=== PATIENT | female | born 1935 | race Hispanic/Latino ===

== ENCOUNTER 2020-04-21 12:55 | Inpatient (IN) | payer MEDICARE ==
[2020-04-21] MEDS ORDERED: ONDANSETRON 4 MG/2 ML INJ IV ONE (14:46)
[2020-04-21] MEDS ORDERED: SODIUM CHLORIDE 0.9% 1000 ML 1,000 ML IV ONE (14:46)
[2020-04-21 15:32] LABS: Basophils # (Auto) 0.1 K/mm3 (0.0-0.1); Basophils % (Auto) 0.6 % (0.0-1.8); Eosinophils % (Auto) 0.1 % (0.0-4.3); Hematocrit 43.7 % (30.3-42.9); Hemoglobin 14.5 gm/dl (10.1-14.3); Lymphocytes # (Auto) 1.8 K/mm3 (1.2-5.4); Lymphocytes % (Auto) 12.2 % (13.4-35.0); Mean Corpuscular HGB Conc 33 % (30-34); Mean Corpuscular Volume 99 fl (79-97); Monocytes % (Auto) 6.9 % (0.0-7.3); Platelet Count 313 K/mm3 (140-440); Red Blood Count 4.42 M/mm3 (3.65-5.03); Red Cell Distribution Width 13.6 % (13.2-15.2)
[2020-04-21 15:45] LABS: Albumin 3.7 g/dL (3.9-5); Calcium 10.7 mg/dL (8.4-10.2)
--- NOTE | 2020-04-21 15:51 | XRay Report ---
XR chest 1V ap INDICATION / CLINICAL INFORMATION: Chest Pain. COMPARISON: None FINDINGS: Heart size and pulmonary vasculature are within normal limits. Increased interstitial markings are mckeon ggestive of chronic interstitial lung disease. There is no focal airspace consolidation. No pleural e ffusion or pneumothorax. Scoliotic curvature. No acute osseous findings. IMPRESSION: Chronic appearing interstitial lung disease. No acute process identified. Signer Name: Deven Desai MD Signed: 04/21/2020 3:47 PM Workstation Name: [id number]
[2020-04-21] MEDS ORDERED: PIPERACILLIN/TAZOBACTAM 3.375 3.375 GM/50 ML BAG IV ONE (16:36)
--- NOTE | 2020-04-21 16:37 | Emergency Department Report ---
ED General Adult HPI - General Chief complaint: Weakness Stated complaint: NAUSEA/VOMITING Time Seen by Provider: 04/21/20 14:40 Source: patient, EMS Mode of arrival: Stretcher Limitations: Other - History of Present Illness Initial comments: Patient is 85 years old female with history of hypertension and dementia. Patient brought to the emergency room via EMS from her primary care office for evaluation of generalized weakness and hypotension. EMS stated that patient blood pressure was 80/40. Patient received a liter of normal saline. Patient also reported nausea vomiting for the last 2 to 3 days. Patient denied any fever or chills. -: This morning Severity scale (0 -10): 5 - Related Data Home Medications Medication Instructions Recorded Confirmed Last Taken ALPRAZolam [Xanax TAB] 1 mg PO TID 04/10/13 04/21/20 04/10/13 09:00 Atorvastatin Calcium [Lipitor] 20 mg PO QDAY 04/10/13 04/21/20 04/10/13 09:00 Citalopram [Celexa] 40 mg PO QDAY 03/21/15 04/21/20 Unknown donepeziL [Aricept] 10 mg PO QDAY 03/21/15 04/21/20 Unknown Budesonide/Formoterol Fumarate 2 puff IH BID 04/21/20 04/21/20 Unknown [Budesonide-Formoterol 160-4.5] HYDROcodone/APAP 5-325 [[place] 1 each PO BID 04/21/20 04/21/20 Unknown 5/325] Previous Rx's Medication Instructions Recorded Last Taken Type Albuterol Mdi (or & Nicu Only) 2 puff IH QID PRN #1 inhalation 03/25/15 Unknown Rx [ProAir HFA Inhaler] Allergies Allergy/AdvReac Type Severity Reaction Status Date / Time No Known Allergies Allergy Unverified 04/10/13 16:09 ED Review of Systems ROS: Stated complaint: NAUSEA/VOMITING Other details as noted in HPI Comment: All other systems reviewed and negative Constitutional: denies: chills, fever Respiratory: denies: cough, shortness of breath, SOB with exertion, SOB at rest, wheezing Cardiovascular: chest pain, palpitations Gastrointestinal: abdominal pain, nausea, vomiting. denies: diarrhea, constipation, hematemesis, melena, hematochezia Genitourinary: frequency Musculoskeletal: denies: back pain Neurological: weakness. denies: headache, numbness, paresthesias, confusion ED Past Medical Hx - Past Medical History Previous Medical History?: Yes Hx Hypertension: Yes Hx Heart Attack/AMI: No Hx Diabetes: No Hx Liver Disease: No Hx Sickle Cell Disease: No Hx Arthritis: Yes Hx Seizures: No Hx Asthma: No Hx Dementia: Yes (mild) Hx HIV: No Additional medical history: cholesterol,RECTAL PROLAPSED - Surgical History Past Surgical History?: Yes Additional Surgical History: right knee replacement 03-19-13. bladder tack - Social History Smoking Status: Current Every Day Smoker Substance Use Type: None - Medications Home Medications: Home Medications Medication Instructions Recorded Confirmed Last Taken Type ALPRAZolam [Xanax TAB] 1 mg PO TID 04/10/13 04/21/20 04/10/13 09:00 History Atorvastatin Calcium [Lipitor] 20 mg PO QDAY 04/10/13 04/21/20 04/10/13 09:00 History Citalopram [Celexa] 40 mg PO QDAY 03/21/15 04/21/20 Unknown History donepeziL [Aricept] 10 mg PO QDAY 03/21/15 04/21/20 Unknown History Albuterol Mdi (or & Nicu Only) 2 puff IH QID PRN #1 inhalation 03/25/15 04/21/20 Unknown Rx [ProAir HFA Inhaler] Budesonide/Formoterol Fumarate 2 puff IH BID 04/21/20 04/21/20 Unknown History [Budesonide-Formoterol 160-4.5] HYDROcodone/APAP 5-325 [[place] 1 each PO BID 04/21/20 04/21/20 Unknown History 5/325] ED Physical Exam - General Limitations: Other General appearance: alert, in no apparent distress - Head Head exam: Present: atraumatic, normocephalic, normal inspection - Eye Eye exam: Present: normal appearance, PERRL - ENT ENT exam: Present: mucous membranes dry - Neck Neck exam: Present: normal inspection, full ROM. Absent: tenderness, meningismus, lymphadenopathy, thyromegaly - Respiratory Respiratory exam: Present: normal lung sounds bilaterally - Cardiovascular Cardiovascular Exam: Present: regular rate, normal rhythm, normal heart sounds - GI/Abdominal GI/Abdominal exam: Present: soft, normal bowel sounds. Absent: distended, tenderness, guarding, rebound, rigid, organomegaly, mass, bruit, pulsatile mass, hernia - Extremities Exam Extremities exam: Present: normal inspection, full ROM, normal capillary refill. Absent: pedal edema, calf tenderness - Back Exam Back exam: Present: normal inspection, full ROM. Absent: CVA tenderness (R), CVA tenderness (L) - Neurological Exam Neurological exam: Present: alert, oriented X3, CN II-XII intact. Absent: motor sensory deficit - Psychiatric Psychiatric exam: Present: normal mood - Skin Skin exam: Present: warm, intact, normal color ED Course Vital Signs 04/21/20 04/21/20 04/21/20 14:08 14:09 14:12 Temperature 97.5 F L Pulse Rate 95 H 102 H Respiratory 18 19 16 Rate Blood Pressure Blood Pressure 164/93 [Right] O2 Sat by Pulse 96 94 96 Oximetry 04/21/20 04/21/20 04/21/20 14:15 14:30 14:45 Temperature Pulse Rate 100 H 105 H 104 H Respiratory 17 19 23 Rate Blood Pressure 164/93 154/88 154/88 Blood Pressure [Right] O2 Sat by Pulse 96 95 95 Oximetry 04/21/20 04/21/20 04/21/20 15:00 15:15 15:30 Temperature Pulse Rate 101 H 107 H 98 H Respiratory 22 27 H 21 Rate Blood Pressure 141/79 141/79 152/125 Blood Pressure [Right] O2 Sat by Pulse 94 97 95 Oximetry 04/21/20 04/21/20 04/21/20 15:45 16:00 16:15 Temperature Pulse Rate 91 H 89 92 H Respiratory 23 18 19 Rate Blood Pressure 152/125 151/51 151/51 Blood Pressure [Right] O2 Sat by Pulse 97 97 97 Oximetry 04/21/20 04/21/20 04/21/20 16:31 16:45 17:01 Temperature Pulse Rate 93 H 98 H 95 H Respiratory 22 21 23 Rate Blood Pressure 166/61 166/61 152/74 Blood Pressure [Right] O2 Sat by Pulse 97 95 96 Oximetry 04/21/20 04/21/20 04/21/20 17:15 17:30 17:45 Temperature Pulse Rate 102 H 101 H 95 H Respiratory 20 22 19 Rate Blood Pressure 152/74 155/65 155/65 Blood Pressure [Right] O2 Sat by Pulse 96 96 96 Oximetry 04/21/20 04/21/20 04/21/20 18:01 18:15 18:30 Temperature Pulse Rate 101 H 98 H 92 H Respiratory 19 19 18 Rate Blood Pressure 152/72 152/72 148/75 Blood Pressure [Right] O2 Sat by Pulse 97 96 96 Oximetry 04/21/20 04/21/20 04/21/20 18:56 19:00 19:15 Temperature Pulse Rate 98 H 93 H 96 H Respiratory 20 20 Rate Blood Pressure 152/72 138/88 138/88 Blood Pressure [Right] O2 Sat by Pulse 90 98 97 Oximetry 04/21/20 04/21/20 04/21/20 19:31 19:45 20:00 Temperature Pulse Rate 93 H 93 H 97 H Respiratory 17 22 19 Rate Blood Pressure 169/81 148/75 155/75 Blood Pressure [Right] O2 Sat by Pulse 97 98 95 Oximetry 04/21/20 04/21/20 04/21/20 20:15 20:30 20:45 Temperature Pulse Rate 91 H 94 H 92 H Respiratory 17 22 19 Rate Blood Pressure 155/75 127/66 127/66 Blood Pressure [Right] O2 Sat by Pulse 96 98 95 Oximetry 04/21/20 20:51 Temperature Pulse Rate Respiratory 19 Rate Blood Pressure Blood Pressure [Right] O2 Sat by Pulse 95 Oximetry ED Medical Decision Making - Lab Data Result diagrams: 04/21/20 15:09 04/21/20 15:09 - EKG Data -: EKG Interpreted by Nd EKG shows normal: sinus rhythm Rate: normal - EKG Data Interpretation: no acute changes - Radiology Data Radiology results: report reviewed - Medical Decision Making Patient is 85 years old female with history of hypertension and dementia. Patient brought to the emergency room via EMS from her primary care office for evaluation of generalized weakness and hypotension. EMS stated that patient blood pressure was 80/40. Patient received a liter of normal saline. Patient also reported nausea vomiting for the last 2 to 3 days. Patient denied any fever or chills. Patient started on normal saline. White blood cells came back at 14.7 patient received Zosyn. Chest x-ray is unremarkable. CT abdomen pelvis is negative for acute finding. Urine is positive for UTI with positive nitrite. I discussed the patient with Dr. Qiu, he agreed to admit the patient to medical service for further management. Critical Care Time: Yes Critical care time in (mins) excluding proc time.: 30 Critical care attestation.: If time is entered above; I have spent that time in minutes in the direct care of this critically ill patient, excluding procedure time. ED Disposition Clinical Impression: Hypotension, UTI (urinary tract infection) Disposition: OP ADMIT IP TO THIS HOSP Is pt being admited?: Yes Condition: Stable Referrals: PRIMARY CARE,MD [Primary Care Provider] - 3-5 Days
--- NOTE | 2020-04-21 19:11 | Cat Scan Report ---
CT abdomen pelvis wo con INDICATION: ABDOMINAL PAIN. COMPARISON: None TECHNIQUE: Abdominal and pelvic CT exam performed. All CT scans at this location are performed using CT dose reduction for ALARA by means of automated exposure control. FINDINGS: CT ABDOMEN and PELVIS: Lung Bases: No significant abnormality. Liver: No significant abnormality. Biliary: No significant abnormality. Spleen: No significant abnormality. Pancreas: No significant abnormality. Adrenals: No significant abnormality. Kidneys: No significant abnormality. Lymphatics: No lymphadenopathy. Vasculature: No significant abnormality. Bowel: Moderate size hiatal hernia. No significant abnormality. Normal appendix. Pelvis: No significant abnormality. Osseous Structures: No aggressive osseous lesion. S-shaped scoliotic curvature. Additional Findings: None IMPRESSION: 1. No significant abnormality of the abdomen or pelvis. Signer Name: David Almanzar MD Signed: 04/21/2020 7:06 PM Workstation Name: [id number]
[2020-04-21 20:33] LABS: Bacteria,Urine 3+ /HPF (Negative); Bilirubin,Urine NEG (Negative); Blood,Urine NEG (Negative); Color,Urine Yellow (Yellow); Mucus,Urine FEW /HPF; Protein,Urine <15 mg/dL mg/dL (Negative); Urobilinogen,Urine < 2.0 mg/dL (<2.0)
[2020-04-21] MEDS ORDERED: ACETAMINOPHEN 325 MG TAB PO PRN (21:43)
[2020-04-21] MEDS ORDERED: MAGNESIUM HYDROXIDE (MOM) ORAL LIQD UDC PO PRN (21:43)
[2020-04-21] MEDS ORDERED: ONDANSETRON 4 MG/2 ML INJ IV PRN (21:43)
--- NOTE | 2020-04-21 21:50 | History and Physical Report ---
History of Present Illness Date of examination: 04/21/20 Date of admission: 04/21/2020 Chief complaint: Nausea and Vomiting Hypotension History of present illness: 85-year-old white female with known history of hypertension and dementia brought into the emergency room via EMS today for for complaints of generalized weakness and hypotension. Patient had visited primary care physician today after having a complaint of nausea and vomiting, weakness which has been ongoing for about 2 to 3 days.. Blood pressure was found to be low with systolic at 80 and diastolic of 40. She received a liter of normal saline prior to reporting to the emergency room. Patient denies any fever or chills, no chest pain or shortness of breath. No headache or dizziness no hematuria or dysuria, no abdominal pain. Work-up in the emergency room today reveals a leukocytosis of about 15, urinalysis reveals a UTI. Patient has been started on empiric IV antibiotics and also IV fluid for hypotension. Past History Past Medical History: arthritis, hypertension, hyperlipidemia, other (Dementia,Rectal prolapse) Past Surgical History: Other (Bladder tack, right knee replacement,) Social history: smoking (Current daily smoker) Family history: no significant family history Medications and Allergies Allergies Allergy/AdvReac Type Severity Reaction Status Date / Time No Known Allergies Allergy Unverified 04/10/13 16:09 Home Medications Medication Instructions Recorded Confirmed Last Taken Type ALPRAZolam [Xanax TAB] 1 mg PO TID 04/10/13 04/21/20 04/10/13 09:00 History Atorvastatin Calcium [Lipitor] 20 mg PO QDAY 04/10/13 04/21/20 04/10/13 09:00 History Citalopram [Celexa] 40 mg PO QDAY 03/21/15 04/21/20 Unknown History donepeziL [Aricept] 10 mg PO QDAY 03/21/15 04/21/20 Unknown History Albuterol Mdi (or & Nicu Only) 2 puff IH QID PRN #1 inhalation 03/25/15 04/21/20 Unknown Rx [ProAir HFA Inhaler] Budesonide/Formoterol Fumarate 2 puff IH BID 04/21/20 04/21/20 Unknown History [Budesonide-Formoterol 160-4.5] HYDROcodone/APAP 5-325 [[place] 1 each PO BID 04/21/20 04/21/20 Unknown History 5/325] Active Meds: Active Medications Acetaminophen (Tylenol) 650 mg PO Q4H PRN PRN Reason: Pain MILD(1-3)/Fever >100.5/CH Sodium Chloride (Nacl 0.9% 1000 Ml) 1,000 mls @ 125 mls/hr IV DIRECT DASHA Magnesium Hydroxide (Milk Of Magnesia) 30 ml PO Q4H PRN PRN Reason: Constipation Ondansetron HCl (Zofran) 4 mg IV Q8H PRN PRN Reason: Nausea And Vomiting Sodium Chloride (Sodium Chloride Flush Syringe 10 Ml) 10 ml IV BID DASHA Sodium Chloride (Sodium Chloride Flush Syringe 10 Ml) 10 ml IV PRN PRN PRN Reason: LINE FLUSH Review of Systems Constitutional: no fever, no chills Ears, nose, mouth and throat: no nasal congestion, no sore throat Cardiovascular: no chest pain, no palpitations Respiratory: no cough, no shortness of breath Gastrointestinal: nausea, vomiting, no abdominal pain, no diarrhea Genitourinary Female: no pelvic pain, no dysuria, no hematuria Musculoskeletal: no neck pain, no low back pain Integumentary: no rash, no pruritis Neurological: no headaches, no confusion Psychiatric: no anxiety, no depression Exam - Constitutional Vitals: Temp Pulse Resp BP Pulse Ox 97.5 F L 92 H 19 127/66 95 04/21/20 14:08 04/21/20 20:45 04/21/20 20:51 04/21/20 20:45 04/21/20 20:51 General appearance: Present: no acute distress, well-nourished - EENT Eyes: Present: PERRL, EOM intact. Absent: scleral icterus ENT: hearing intact, clear oral mucosa, dentition normal - Neck Neck: Present: supple, normal ROM - Respiratory Respiratory effort: normal Respiratory: bilateral: CTA - Cardiovascular Rhythm: regular Heart Sounds: Present: S1 & S2. Absent: gallop, systolic murmur, diastolic murmur, rub - Extremities Extremities: no ischemia, pulses intact, pulses symmetrical, No edema, Full ROM Peripheral Pulses: within normal limits - Abdominal General gastrointestinal: Present: soft, non-tender, non-distended, normal bowel sounds. Absent: mass - Integumentary Integumentary: Present: clear, warm, dry. Absent: rash - Musculoskeletal Musculoskeletal: strength equal bilaterally - Psychiatric Psychiatric: appropriate mood/affect, intact judgment & insight, memory intact, cooperative - Neurologic Neurologic: CNII-XII intact, no focal deficits, moves all extremities HEART Score - HEART Score Troponin: Troponin T < 0.010 ng/mL (0.00-0.029) 04/21/20 20:08 Results - Labs CBC & Chem 7: 04/21/20 15:09 04/21/20 15:09 Labs: Abnormal lab results 04/21/20 04/21/20 Range/Units 15:09 15:09 WBC 14.7 H (4.5-11.0) K/mm3 Hgb 14.5 H (10.1-14.3) gm/dl Hct 43.7 H (30.3-42.9) % MCV 99 H (79-97) fl MCH 33 H (28-32) pg Lymph % (Auto) 12.2 L (13.4-35.0) % [place] # (Auto) 1.0 H (0.0-0.8) K/mm3 Seg Neutrophils % 80.2 H (40.0-70.0) % Seg Neutrophils # 11.8 H (1.8-7.7) K/mm3 BUN 61 H (7-17) mg/dL Creatinine 1.6 H (0.6-1.2) mg/dL Glucose 116 H (65-100) mg/dL Calcium 10.7 H (8.4-10.2) mg/dL Albumin 3.7 L (3.9-5) g/dL Assessment and Plan - Patient Problems (1) UTI (urinary tract infection) Current Visit: Yes Status: Acute Plan to address problem: Patient placed on empiric IV antibiotics. We await urine culture results. (2) Hypotension Current Visit: Yes Status: Acute Plan to address problem: Patient placed on IV fluid. Will monitor vital signs closely. (3) Dementia Current Visit: Yes Status: Acute Plan to address problem: We will continue patient on her routine home medication. (4) DVT prophylaxis Current Visit: Yes Status: Acute Plan to address problem: Patient placed on subcutaneous Lovenox. (5) Full code status Current Visit: Yes Status: Acute
[2020-04-22 04:53] LABS: Basophils # (Auto) 0.1 K/mm3 (0.0-0.1); Basophils % (Auto) 0.8 % (0.0-1.8); Eosinophils # (Auto) 0.1 K/mm3 (0.0-0.4); Eosinophils % (Auto) 0.6 % (0.0-4.3); Hematocrit 40.6 % (30.3-42.9); Hemoglobin 14.1 gm/dl (10.1-14.3); Lymphocytes # (Auto) 2.8 K/mm3 (1.2-5.4); Lymphocytes % (Auto) 18.2 % (13.4-35.0); Mean Corpuscular HGB Conc 35 % (30-34); Mean Corpuscular Volume 97 fl (79-97); Monocytes # (Auto) 1.4 K/mm3 (0.0-0.8); Monocytes % (Auto) 9.2 % (0.0-7.3); Platelet Count 299 K/mm3 (140-440); Red Blood Count 4.17 M/mm3 (3.65-5.03); Red Cell Distribution Width 13.6 % (13.2-15.2)
[2020-04-22 05:02] LABS: INR 0.94 (0.87-1.13)
[2020-04-22] MEDS ORDERED: cefTRIAXone/NS 1 GM/50 ML 1 GM/50 ML BAG IV ONE (11:38)
[2020-04-22] MEDS: cefTRIAXone/NS 1 GM/50 ML 1 GM/50 ML BAG IV SCH (11:45)
[2020-04-22] MEDS: SODIUM CHLORIDE 0.9% 1000 ML 1,000 ML IV SCH ×2 (15:55→23:13)
--- NOTE | 2020-04-22 17:19 | Progress Note ---
Assessment and Plan Acute metabolic encephalopathy -Likely due to ANGELICA dehydration and hypotension along with UTI -Continue to treat underlying cause -Patient also has history of dementia, will continue supportive care UTI, continue IV antibiotic, follow culture Hypotension, resolved with IV fluid monitor BP closely Chest pain, likely atypical - will get EKG, start on aspirin and statin -Initial troponin in the ER was normal -We will get 2D echocardiogram, start on PPI HTN, start on norvasc and coreg, monitor BP closely Hyperlipidemia, continue statin Dementia, continue supportive care --DVT prophylaxis, SCD --Full CODE STATUS Brief History: 85-year-old white female with known history of hypertension and dementia brought into the emergency room via EMS today for for complaints of generalized weakness and hypotension. Work-up in the emergency room reveals a leukocytosis of about 15, Cr 1.6, urinalysis reveals a UTI. Patient has been started on empiric IV antibiotics and also IV fluid for hypotension and ANGELICA. 04/22: cr 1.3 today, cont iv abx and Iv fluid. Complaints of chest pain this afternoon, blood pressure also noted elevated. We will monitor serial troponin EKG get 2D echocardiogram. Continue aspirin and statin Subjective Date of service: 04/22/20 Interval history: Patient seen and examined. Medical records and medication list reviewed. No acute event overnight noted by the RN. Patient complains of chest pain but unable to provide any details. Patient is tolerating diet. Discussed plan of care at bedside with patient and RN. Objective - Exam Narrative Exam: GENERAL: well-developed white elderly female lying on bed appeared to be in no discomfort. HEENT: Normocephalic. Atraumatic. No conjunctival congestion or icterus. Patient has moist mucous membranes. NECK: Supple. Trachea midline. CHEST/LUNGS: Clear to auscultated bilaterally, breathing nonlabored. No wheezes crackles or rhonchi. HEART/CARDIOVASCULAR: Regular in rate and rhythm. S1 and S2 positive. ABDOMEN: Abdomen is soft, nontender. Patient has normal bowel sounds. SKIN: There is no rash. Warm and dry. NEURO: No focal motor deficit. Follows command. Oriented to person only MUSCULOSKELETAL: No joint effusion or tenderness. EXTRIMITY: No edema, no cyanosis or clubbing. PSYCH: Cooperative. - Constitutional Vitals: Vital Signs - 12hr 04/22/20 04/22/20 04/22/20 05:30 05:45 06:01 Pulse Rate 92 H 92 H 96 H Respiratory 22 22 22 Rate Blood Pressure 150/98 150/98 132/81 O2 Sat by Pulse 99 95 92 Oximetry 04/22/20 04/22/20 04/22/20 06:15 06:32 06:45 Pulse Rate 95 H 94 H 98 H Respiratory 21 23 19 Rate Blood Pressure 132/81 132/81 O2 Sat by Pulse 95 96 96 Oximetry 04/22/20 04/22/20 04/22/20 07:01 07:15 07:31 Pulse Rate 88 89 91 H Respiratory 16 21 21 Rate Blood Pressure 142/62 142/62 142/62 O2 Sat by Pulse 98 98 98 Oximetry 04/22/20 04/22/20 04/22/20 07:45 08:15 09:31 Pulse Rate 88 87 91 H Respiratory 21 21 21 Rate Blood Pressure 142/62 114/70 135/66 O2 Sat by Pulse 99 99 98 Oximetry 04/22/20 04/22/20 04/22/20 10:00 11:00 12:00 Pulse Rate 94 H 91 H 94 H Respiratory 21 22 21 Rate Blood Pressure 135/66 146/65 130/67 O2 Sat by Pulse 97 97 98 Oximetry 04/22/20 04/22/20 13:31 14:00 Pulse Rate 92 H 99 H Respiratory 19 22 Rate Blood Pressure 107/48 128/61 O2 Sat by Pulse 93 92 Oximetry - Labs CBC & Chem 7: 04/23/20 04:29 04/23/20 04:29 Labs: Abnormal lab results 04/22/20 04/22/20 Range/Units 04:26 04:26 WBC 15.4 H (4.5-11.0) K/mm3 MCH 34 H (28-32) pg MCHC 35 H (30-34) % [place] % (Auto) 9.2 H (0.0-7.3) % [place] # (Auto) 1.4 H (0.0-0.8) K/mm3 Seg Neutrophils % 71.2 H (40.0-70.0) % Seg Neutrophils # 10.9 H (1.8-7.7) K/mm3 BUN 53 H (7-17) mg/dL Creatinine 1.3 H (0.6-1.2) mg/dL Glucose 102 H (65-100) mg/dL HEART Score - HEART Score Troponin: Troponin T < 0.010 ng/mL (0.00-0.029) 04/21/20 20:08
[2020-04-22] MEDS ORDERED: ALBUTEROL 8.5 GM MDI INHALATION IH PRN (19:00)
[2020-04-22] MEDS ORDERED: ALBUTEROL 2.5 MG/3 ML NEBU IH PRN (19:19)
[2020-04-22] MEDS ORDERED: FORMOTEROL FUMARATE IH SCH (22:00)
[2020-04-22] MEDS ORDERED: BUDESONIDE IH SCH (22:00)
[2020-04-22] MEDS ORDERED: ENOXAPARIN 40 MG/0.4 ML INJ SUB-Q SCH (22:00)
[2020-04-22] MEDS ORDERED: [UNRECOGNIZED DRUG - OTHER] IH SCH (22:00)
[2020-04-22] MEDS: carvediloL 3.125 MG TAB PO SCH (23:02)
[2020-04-22] MEDS: ENOXAPARIN 30 MG/0.3 ML INJ SUB-Q SCH (23:02)
[2020-04-22] MEDS: ASPIRIN EC 81 MG TAB PO SCH (23:02)
[2020-04-22] MEDS: ALPRAZolam 1 MG TAB PO PRN (23:28)
[2020-04-23] MEDS: ARFORMOTEROL 15 MCG/2 ML NEBU IH SCH ×3 (00:24→20:29)
[2020-04-23] MEDS: BUDESONIDE 0.5 MG/2 ML NEBU IH SCH ×3 (00:24→20:29)
[2020-04-23 04:49] LABS: Hematocrit 37.3 % (30.3-42.9); Hemoglobin 12.3 gm/dl (10.1-14.3); Mean Corpuscular HGB Conc 33 % (30-34); Mean Corpuscular Volume 100 fl (79-97); Platelet Count 224 K/mm3 (140-440); Red Blood Count 3.73 M/mm3 (3.65-5.03); Red Cell Distribution Width 13.3 % (13.2-15.2)
[2020-04-23 05:06] LABS: BUN/Creatinine Ratio 43; Blood Urea Nitrogen 34 mg/dL (7-17); Calcium 8.6 mg/dL (8.4-10.2); Hemolysis Index 11
[2020-04-23 06:23] LABS: Basophils % (Manual) 0 % (0.0-1.8); Eosinophils % (Manual) 0 % (0.0-4.3); Platelet Estimate Consistent w Auto; Total Cells Counted 100
[2020-04-23] MEDS: SODIUM CHLORIDE 0.9% 1000 ML 1,000 ML IV SCH ×2 (06:27→19:23)
[2020-04-23] MEDS ORDERED: POTASSIUM CHLORIDE ER 20 MEQ TAB PO SCH (10:00)
[2020-04-23] MEDS: cefTRIAXone/NS 1 GM/50 ML 1 GM/50 ML BAG IV SCH (10:43)
[2020-04-23] MEDS: CITALOPRAM 20 MG TAB PO SCH (10:44)
[2020-04-23] MEDS: ASPIRIN EC 81 MG TAB PO SCH (10:44)
[2020-04-23] MEDS: DONEPEZIL 10 MG TAB PO SCH (10:45)
[2020-04-23] MEDS: carvediloL 3.125 MG TAB PO SCH (10:45)
--- NOTE | 2020-04-23 14:06 | Discharge Summary ---
Providers - Providers Date of Admission: 04/22/20 15:09 Date of discharge: 04/24/20 Attending physician: HYUN SANZ 04/21/20 21:45 Consult to Dietitian/Nutrition [CONS] Routine Physician Instructions: Reason For Exam: Reason for Consult: Diet education 04/23/20 12:08 Consult to Physician [CONS] Routine Comment: Consulting Provider: YOKO GARAY Physician Instructions: Reason For Exam: chest pain Primary care physician: [employer]GER Hospitalization Condition: Stable Hospital course: 85-year-old white female with known history of hypertension and dementia brought into the emergency room via EMS today for for complaints of generalized weakness and hypotension. Work-up in the emergency room reveals a leukocytosis of about 15, Cr 1.6, urinalysis reveals a UTI. Patient has been started on empiric IV antibiotics and also IV fluid for hypotension and ANGELICA. 04/22: cr 1.3 today, cont iv abx and Iv fluid. Complaints of chest pain this afternoon, blood pressure also noted elevated. We will monitor serial troponin EKG get 2D echocardiogram. Continue aspirin and statin 04/23: still c/o intermittent chest pain - will follow 2d echo result, consulted cardiology 04/24: Clinically stable, Renal function improved. 2d echo showed Ef 60%, Cardiology recommended stress test. But patient's daughter requested hospice, patient will be discharge with home hospice. 04/25; d/c patient with inpatient hospice in stable condition Discharge diagnosis: Acute metabolic encephalopathy -Likely due to ANGELICA dehydration and hypotension along with UTI -Continue to treat underlying cause -Patient also has history of dementia, will continue supportive care UTI, suspected. treated with IV antibiotic, blood culture negative Leukocytosis, reactive to dehydration, no SIRS or SEPSIS Hypotension, resolved with IV fluid monitor BP closely ANGELICA, likely vasolotor nephropathy from hypotension - POA, improved with IV fluid hypokalemia, repleted Chest pain, likely atypical from GERD - no St changes on EKG, conton aspirin and statin -serial troponin was normal -2D echocardiogram w/o any wall motion abnormality, - cont on PPI, outpt f/u with cardiology COPD, w/o exacerbation - has Remote history of tobacco smoking - cont home inhalers, HTN, cont on norvasc and coreg, monitor BP closely Hyperlipidemia, continue statin Dementia, continue supportive care --DVT prophylaxis, SCD --Full CODE STATUS Disposition: [id number] ([facility]) Time spent for discharge: 34 minutes Core Measure Documentation - Palliative Care Palliative Care/ Comfort Measures: Not Applicable - Core Measures Any of the following diagnoses?: none Exam - Physical Exam Narrative exam: GENERAL: well-developed white elderly female lying on bed appeared to be in no discomfort. HEENT: Normocephalic. Atraumatic. No conjunctival congestion or icterus. Patient has moist mucous membranes. NECK: Supple. Trachea midline. CHEST/LUNGS: Clear to auscultated bilaterally, breathing nonlabored. No wheezes crackles or rhonchi. HEART/CARDIOVASCULAR: Regular in rate and rhythm. S1 and S2 positive. ABDOMEN: Abdomen is soft, nontender. Patient has normal bowel sounds. SKIN: There is no rash. Warm and dry. NEURO: No focal motor deficit. Follows command. Oriented to person only MUSCULOSKELETAL: No joint effusion or tenderness. EXTRIMITY: No edema, no cyanosis or clubbing. PSYCH: Cooperative. - Constitutional Vitals: Temp Pulse Resp BP Pulse Ox 98.6 F 85 16 157/67 99 04/23/20 05:20 04/23/20 10:45 04/23/20 07:27 04/23/20 10:45 04/23/20 05:20 Plan Activity: advance as tolerated Weight Bearing Status: Weight Bear as Tolerated Diet: low fat, low salt Special Instructions: record daily BP diary Follow up with: PRIMARY CAREMD [Primary Care Provider] - 3-5 Days JOVAN TAVAREZ MD [Staff Physician] - 7 Days Prescriptions: amLODIPine 10 mg PO QDAY #30 tablet carvediloL [Coreg] 3.125 mg PO BID #60 tablet Aspirin EC [Halfprin EC] 81 mg PO QDAY #30 tablet
[2020-04-23] MEDS: amLODIPine 10 MG TAB PO SCH (19:27)
[2020-04-23] MEDS: ENOXAPARIN 30 MG/0.3 ML INJ SUB-Q SCH (22:45)
[2020-04-24] MEDS: ALPRAZolam 1 MG TAB PO PRN (00:44)
[2020-04-24] MEDS: carvediloL 3.125 MG TAB PO SCH ×3 (00:45→23:02)
[2020-04-24] MEDS: SODIUM CHLORIDE 0.9% 1000 ML 1,000 ML IV SCH (07:04)
[2020-04-24] MEDS: ARFORMOTEROL 15 MCG/2 ML NEBU IH SCH ×2 (08:51→20:39)
[2020-04-24] MEDS: BUDESONIDE 0.5 MG/2 ML NEBU IH SCH ×2 (08:51→20:39)
--- NOTE | 2020-04-24 10:35 | Progress Note ---
Assessment and Plan Acute metabolic encephalopathy -Likely due to ANGELICA dehydration and hypotension along with UTI -Continue to treat underlying cause -Patient also has history of dementia, will continue supportive care UTI, continue IV antibiotic, follow culture Hypotension, resolved with IV fluid monitor BP closely Chest pain, likely atypical - will get EKG, start on aspirin and statin -Initial troponin in the ER was normal -We will get 2D echocardiogram, start on PPI HTN, start on norvasc and coreg, monitor BP closely Hyperlipidemia, continue statin Dementia, continue supportive care --DVT prophylaxis, SCD --Full CODE STATUS Brief History: 85-year-old white female with known history of hypertension and dementia brought into the emergency room via EMS today for for complaints of generalized weakness and hypotension. Work-up in the emergency room reveals a leukocytosis of about 15, Cr 1.6, urinalysis reveals a UTI. Patient has been started on empiric IV antibiotics and also IV fluid for hypotension and ANGELICA. 04/22: cr 1.3 today, cont iv abx and Iv fluid. Complaints of chest pain this afternoon, blood pressure also noted elevated. We will monitor serial troponin EKG get 2D echocardiogram. Continue aspirin and statin 04/23: still c/o intermittent chest pain - will follow 2d echo result, consulted cardiology Subjective Date of service: 04/23/20 Interval history: Patient seen and examined. Medical records and medication list reviewed. No acute event overnight noted by the RN. Patient complains of chest pain mainly with food but otherwise tolerating diet. Discussed plan of care at bedside with patient and RN. Family was at bedside Objective - Constitutional Vitals: Vital Signs - 12hr 04/24/20 04/24/20 04/24/20 00:45 04:34 08:54 Temperature 97.7 F Pulse Rate 82 83 Pulse Rate [ 86 Anterior Throughout] Respiratory 18 Rate Respiratory 18 Rate [Anterior Throughout] Blood Pressure 156/70 137/70 O2 Sat by Pulse 89 Oximetry - Labs CBC & Chem 7: 04/23/20 04:29 04/23/20 04:29 HEART Score - HEART Score Troponin: Troponin T 0.010 ng/mL (0.00-0.029) 04/24/20 07:07
--- NOTE | 2020-04-24 11:12 | Consultation ---
History of Present Illness Consult date: 04/24/20 Consult reason: chest pain History of present illness: This is a frail, 85-year old woman who was sent from her PCP office 3 days go, with hypotension, nausea vomiting and generalized weakness. Workup in the emergency department revealed dehydration and UTI. Over her hospital course, patient complained of chest pain, thus this cardiac consultation. Patient describes chest pain following ingestion of food or cold drinks. She denies shortness of breath, and denies palpitations. There is no lower extremity edema. Denies a prior cardiac history. Cycled troponin measurements are normal. An ECG done is sinus tachycardia with PACs. Further evaluation with an echocardiogram shows a normal left ventricular systolic function, ejection fraction 60-65%. Past History Past Medical History: arthritis, hypertension, hyperlipidemia, other (Dementia,Rectal prolapse) Past Surgical History: Other (Bladder tack, right knee replacement,) Social history: smoking (Current daily smoker) Family history: no significant family history Medications and Allergies Allergies Allergy/AdvReac Type Severity Reaction Status Date / Time No Known Allergies Allergy Unverified 04/10/13 16:09 Home Medications Medication Instructions Recorded Confirmed Last Taken Type Atorvastatin Calcium [Lipitor] 20 mg PO QDAY 04/10/13 04/21/20 04/10/13 09:00 History Citalopram [Celexa] 40 mg PO QDAY 03/21/15 04/21/20 Unknown History donepeziL [Aricept] 10 mg PO QDAY 03/21/15 04/21/20 Unknown History Albuterol Mdi (or & Nicu Only) 2 puff IH QID PRN #1 inhalation 03/25/15 04/21/20 Unknown Rx [ProAir HFA Inhaler] Budesonide/Formoterol Fumarate 2 puff IH BID 04/21/20 04/21/20 Unknown History [Budesonide-Formoterol 160-4.5] Aspirin EC [Halfprin EC] 81 mg PO QDAY #30 tablet 04/23/20 Unknown Rx amLODIPine 10 mg PO QDAY #30 tablet 04/23/20 Unknown Rx carvediloL [Coreg] 3.125 mg PO BID #60 tablet 04/23/20 Unknown Rx Active Meds: Active Medications Acetaminophen (Tylenol) 650 mg PO Q4H PRN PRN Reason: Pain MILD(1-3)/Fever >100.5/CH Albuterol (Proventil) 2.5 mg IH Q4HRT PRN PRN Reason: Shortness Of Breath Alprazolam (Xanax) 1 mg PO Q8H PRN PRN Reason: Anxiety Last Admin: 04/24/20 00:44 Dose: 1 mg Documented by: Amlodipine Besylate (Amlodipine) 10 mg PO QDAY [facility] Last Admin: 04/23/20 19:27 Dose: 10 mg Documented by: Arformoterol Tartrate (Brovana Nebu) 15 mcg IH Q12HRT [facility] Last Admin: 04/24/20 08:51 Dose: 15 mcg Documented by: Aspirin (Halfprin Ec) 81 mg PO QDAY [facility] Last Admin: 04/23/20 10:44 Dose: 81 mg Documented by: Atorvastatin Calcium (Lipitor) 20 mg PO HS [facility] Last Admin: 04/24/20 00:44 Dose: 20 mg Documented by: Budesonide (Pulmicort) 0.5 mg IH Q12HRT [facility] Last Admin: 04/24/20 08:51 Dose: 0.5 mg Documented by: Carvedilol (Coreg) 3.125 mg PO BID [facility] Last Admin: 04/24/20 00:45 Dose: 3.125 mg Documented by: Citalopram Hydrobromide (Celexa) 40 mg PO QDAY [facility] Last Admin: 04/23/20 10:44 Dose: 40 mg Documented by: Donepezil HCl (Aricept) 10 mg PO QDAY [facility] Last Admin: 04/23/20 10:45 Dose: 10 mg Documented by: Enoxaparin Sodium (Enoxaparin) 30 mg SUB-Q QDAY@2200 [facility]; Protocol Last Admin: 04/23/20 22:45 Dose: 30 mg Documented by: Sodium Chloride (Nacl 0.9% 1000 Ml) 1,000 mls @ 125 mls/hr IV DIRECT [facility] Last Admin: 04/24/20 07:04 Dose: 125 mls/hr Documented by: Ceftriaxone Sodium (Rocephin/Ns 1 Gm/50 Ml) 1 gm in 50 mls @ 100 mls/hr IV Q24HR [facility]; Protocol Last Admin: 04/23/20 10:43 Dose: 100 mls/hr Documented by: Magnesium Hydroxide (Milk Of Magnesia) 30 ml PO Q4H PRN PRN Reason: Constipation Ondansetron HCl (Zofran) 4 mg IV Q8H PRN PRN Reason: Nausea And Vomiting Sodium Chloride (Sodium Chloride Flush Syringe 10 Ml) 10 ml IV BID [facility] Last Admin: 04/24/20 00:46 Dose: 10 ml Documented by: Sodium Chloride (Sodium Chloride Flush Syringe 10 Ml) 10 ml IV PRN PRN PRN Reason: LINE FLUSH Physical Examination Vital Signs Temp Pulse Resp BP Pulse Ox 97.5 F L 95 H 18 164/93 96 04/21/20 14:08 04/21/20 14:08 04/21/20 14:08 04/21/20 14:08 04/21/20 14:08 General appearance: no acute distress HEENT: Positive: PERRL Neck: Positive: trachea midline Cardiac: Positive: Reg Rate and Rhythm Lungs: Positive: Decreased Breath Sounds, Wheezes Neuro: Positive: Grossly Intact Extremities: Absent: edema Results 04/23/20 04:29 04/23/20 04:29 Assessment and Plan Chest pain UTI Dehydration Hypertension Tobacco abuse Normal LVEF 60-65% by echo. Pre-discharge Lexiscan thallium stress test for chest pain and cardiac assessment. Consider treatment for GERD like symptoms.
[2020-04-24] MEDS: CITALOPRAM 20 MG TAB PO SCH (11:49)
[2020-04-24] MEDS: DONEPEZIL 10 MG TAB PO SCH (11:49)
[2020-04-24] MEDS: cefTRIAXone/NS 1 GM/50 ML 1 GM/50 ML BAG IV SCH (11:50)
[2020-04-24] MEDS: amLODIPine 10 MG TAB PO SCH (11:50)
[2020-04-24] MEDS: ASPIRIN EC 81 MG TAB PO SCH (11:52)
--- NOTE | 2020-04-24 15:30 | Event Note ---
Date: 04/24/20 Discussed with Patient's daughter and she wants hospice for the patient will cancel stress test and consult CM for home hospice
[2020-04-24] MEDS: ENOXAPARIN 30 MG/0.3 ML INJ SUB-Q SCH (23:03)
[2020-04-25] MEDS: SODIUM CHLORIDE 0.9% 1000 ML 1,000 ML IV SCH ×2 (02:07→11:29)
--- NOTE | 2020-04-25 08:52 | Progress Note ---
Assessment and Plan Chest pain, atypical UTI Dehydration Hypertension Tobacco abuse Normal LVEF 60-65% by echo. Stress thallium test has been canceled by the hospitalist team. Family member wishes to pursue conservative measures. No further cardiac work-up is indicated. Will sign off. Subjective Date of service: 04/25/20 Interval history: Planned stress thallium test has been canceled by the hospitalist team as family member wishes to pursue conservative measures. Patient awaits home hospice arrangement. Objective Vital Signs Temp Pulse Pulse Resp Resp BP Pulse Ox 04/25/20 04:45 98.9 F 80 16 136/61 97 04/24/20 23:02 86 119/71 04/24/20 21:38 98.7 F 86 18 119/71 92 04/24/20 20:55 88 16 04/24/20 17:06 98.7 F 83 18 148/69 90 04/24/20 11:38 98.5 F 85 18 139/68 90 04/24/20 08:54 86 18 - Physical Examination General: No Apparent Distress HEENT: Positive: PERRL Neck: Positive: trachea midline Cardiac: Positive: Reg Rate and Rhythm Lungs: Positive: Decreased Breath Sounds Neuro: Positive: Grossly Intact Extremities: Absent: edema
[2020-04-25] MEDS: ARFORMOTEROL 15 MCG/2 ML NEBU IH SCH (09:37)
[2020-04-25] MEDS: BUDESONIDE 0.5 MG/2 ML NEBU IH SCH (09:37)
--- NOTE | 2020-04-25 10:56 | Progress Note ---
Assessment and Plan Acute metabolic encephalopathy -Likely due to ANGELICA dehydration and hypotension along with UTI -Continue to treat underlying cause -Patient also has history of dementia, will continue supportive care UTI, continue IV antibiotic, follow culture Hypotension, resolved with IV fluid monitor BP closely Chest pain, likely atypical from GERD - no St changes on EKG, conton aspirin and statin -serial troponin was normal -2D echocardiogram w/o any wall motion abnormality, family refuses any additional testing and requesting for hospice - cont on PPI, outpt f/u with cardiology COPD, w/o exacerbation - has Remote history of tobacco smoking - cont home inhalers, HTN, cont on norvasc and coreg, monitor BP closely Hyperlipidemia, continue statin Dementia, continue supportive care --DVT prophylaxis, SCD --DNR CODE STATUS Brief History: 85-year-old white female with known history of hypertension and dementia brought into the emergency room via EMS today for for complaints of generalized weakness and hypotension. Work-up in the emergency room reveals a leukocytosis of about 15, Cr 1.6, urinalysis reveals a UTI. Patient has been started on empiric IV antibiotics and also IV fluid for hypotension and ANGELICA. 04/22: cr 1.3 today, cont iv abx and Iv fluid. Complaints of chest pain this afternoon, blood pressure also noted elevated. We will monitor serial troponin EKG get 2D echocardiogram. Continue aspirin and statin 04/23: still c/o intermittent chest pain - will follow 2d echo result, consulted cardiology 04/24: Clinically stable, Renal function improved. 2d echo showed Ef 60%, Cardiology recommended stress test. But patient's daughter requested hospice, patient will be discharge with home hospice Subjective Date of service: 04/24/20 Interval history: Patient seen and examined. Medical records and medication list reviewed. No acute event overnight noted by the RN. Patient complains of chest pain mainly with food but otherwise tolerating diet. Discussed plan of care at bedside with patient and RN. Discussed with daughter today in length and she is requesting for home hospice and no additional aggressive testing Objective - Exam Narrative Exam: GENERAL: well-developed white elderly female lying on bed appeared to be in no discomfort. HEENT: Normocephalic. Atraumatic. No conjunctival congestion or icterus. Patient has moist mucous membranes. NECK: Supple. Trachea midline. CHEST/LUNGS: Clear to auscultated bilaterally, breathing nonlabored. No wheezes crackles or rhonchi. HEART/CARDIOVASCULAR: Regular in rate and rhythm. S1 and S2 positive. ABDOMEN: Abdomen is soft, nontender. Patient has normal bowel sounds. SKIN: There is no rash. Warm and dry. NEURO: No focal motor deficit. Follows command. Oriented to person only MUSCULOSKELETAL: No joint effusion or tenderness. EXTRIMITY: No edema, no cyanosis or clubbing. PSYCH: Cooperative. - Constitutional Vitals: Vital Signs - 12hr 04/24/20 04/25/20 04/25/20 23:02 04:45 09:37 Temperature 98.9 F Pulse Rate 86 80 Pulse Rate [ 80 Anterior Throughout] Respiratory 16 Rate Respiratory 21 Rate [Anterior Throughout] Blood Pressure 119/71 136/61 O2 Sat by Pulse 97 Oximetry - Labs CBC & Chem 7: 04/23/20 04:29 04/23/20 04:29 HEART Score - HEART Score Troponin: Troponin T 0.010 ng/mL (0.00-0.029) 04/24/20 07:07
[2020-04-25] MEDS: cefTRIAXone/NS 1 GM/50 ML 1 GM/50 ML BAG IV SCH (11:29)
[2020-04-25] MEDS: amLODIPine 10 MG TAB PO SCH (11:33)
[2020-04-25] MEDS: ASPIRIN EC 81 MG TAB PO SCH (11:33)
[2020-04-25] MEDS: carvediloL 3.125 MG TAB PO SCH (11:33)
[2020-04-25] MEDS: DONEPEZIL 10 MG TAB PO SCH (11:33)
[2020-04-25 11:34] VITALS: BP 131/59
[2020-04-25] MEDS: CITALOPRAM 20 MG TAB PO SCH (11:34)
[2020-04-25] MEDS ORDERED: POTASSIUM CHLORIDE ER 20 MEQ TAB PO ONE (12:47)
== END 2020-04-25 15:10 | disposition hospice, inpatient (51) | DRG 70 ==
LOC: ED 12:55 → 3A 21:35 → OBSVTOIN 04-22 15:09
PROVIDERS: ADMIT Internal Medicine Geriatric Medicine; ATTEND Internal Medicine
DX: G93.41 Metabolic encephalopathy (principal); N17.0 Acute kidney failure with tubular necrosis; N39.0 Urinary tract infection, site not specified; I10 Essential (primary) hypertension; I95.9 Hypotension, unspecified; F03.90 Unspecified dementia, unspecified severity, without behavioral disturbance, psychotic disturbance, mood disturbance, and anxiety; E86.0 Dehydration; E87.6 Hypokalemia; D72.829 Elevated white blood cell count, unspecified; K21.9 Gastro-esophageal reflux disease without esophagitis; J44.9 Chronic obstructive pulmonary disease, unspecified; E78.5 Hyperlipidemia, unspecified; Z96.651 Presence of right artificial knee joint; Z20.828 Contact with and (suspected) exposure to other viral communicable diseases; F17.200 Nicotine dependence, unspecified, uncomplicated; M19.90 Unspecified osteoarthritis, unspecified site; Z79.82 Long term (current) use of aspirin; Z79.899 Other long term (current) drug therapy
CPT/HCPCS: 36415; 71045; 74176; 80048; 80053; 81001; 82140; 83690; 84484; 85007; 85025; 85610; 86850; 86900; 86901; 87040; 93005; 93306; 94640; G0378; A9270-GY; J0696; J1650; J2405; J2543; J7030; U0003